=== PATIENT | female | born 1930 | race Caucasian/White ===

== ENCOUNTER → 2018-04-03 | Outpatient (CLI) | payer OTHER ==
[2018-03-22 11:11] VITALS: BP 98/64
[~2018-04-03] MED LIST: AMLO10TA6 PO; APIX2.5T PO; ASPI-612 PO; ATOR40TA59 PO; BETAMETHASONE; CITA10TA4 PO; DIGO125T PO; FURO40TA4 PO; GABA-585 PO; GLIM1TAB2 PO; HYDR-2145 PO; LEVO137T3 PO; LISI-130 PO; METO50TA4 PO; PANT20TA2 PO
[2018-04-03 14:22] LABS: CREATININE 2.6 mg/dL (0.6-1.0); GFR 17.5; POTASSIUM 3.5 mmol/L (3.5-5.1)
== END | disposition home or self-care (01) ==
LOC: SPEC 13:35
PROVIDERS: ATTEND Internal Medicine Cardiovascular Disease
DX: I11.0 Hypertensive heart disease with heart failure (principal); I50.22 Chronic systolic (congestive) heart failure
CPT/HCPCS: 36415; 80048

== ENCOUNTER 2018-04-04 10:20 | Emergency (ER) | payer OTHER ==
[~2018-04-04] VITALS: Ht 160 cm; Wt 52.6 kg
[2018-04-04] MEDS ORDERED: IV NORMAL SALINE 500ML BAG 500 ML IV ONE (10:45)
--- NOTE | 2018-04-04 10:46 | PHYS DOC ---
Past Medical History Past Medical History: A-Fib, Cancer, Diabetes-Type II, Hypertension, Other Additional Past Medical Histor: BREAST CA Past Surgical History: Angioplasty, Appendectomy, Cholecystectomy, Other Additional Past Surgical Histo: L ENDARECTOMY,L MASTECTOMY Alcohol Use: None Drug Use: None Adult General Chief Complaint Chief Complaint: ABNORMAL LABS HPI HPI Patient is a 87 year old female was asked to come back to the emergency room due to an elevated creatinine. It is up to 2.6 with a baseline around 1.1 yesterday. She had a cardiac catheter beginning of this month that did show diffuse coronary artery disease in addition she had a permanent pacemaker placed for sick sinus syndrome. She has been on her usual medications C whole list for review no new changes except that the amlodipine was cut in half recently. Patient has no fever she does have some generalized weakness when walking very long distances but really no chest pain and no shortness of breath she actually is overall feeling better than she was when she was in the hospital. No dysuria although she has had decreased urine output she tells me no abdominal pain no vomiting. Review of Systems Review of Systems Constitutional: Denies fever or chills [] Eyes: Denies change in visual acuity, redness, or eye pain [] HENT: Denies nasal congestion or sore throat [] Musculoskeletal: Denies back pain or joint pain [] Integument: Denies rash or skin lesions [] Neurologic: Denies headache, focal weakness or sensory changes [] Endocrine: Denies polyuria or polydipsia [] All other systems were reviewed and found to be within normal limits, except as documented in this note. Current Medications Current Medications Current Medications Medications (Trade) Dose Ordered Sig/Catie Start Time Stop Time Status Last Admin Dose Admin Sodium Chloride 500 ml @ 500 mls/hr 1X ONCE 04/04/18 10:45 04/04/18 11:44 DC 04/04/18 11:08 500 MLS/HR Allergies Allergies Allergies Coded Allergies Type Severity Reaction Last Updated Verified Penicillins Allergy Mild RASH 03/16/18 Yes Physical Exam Physical Exam Constitutional: Well developed, well nourished, no acute distress, non-toxic appearance. [] HENT: Normocephalic, atraumatic, bilateral external ears normal, oropharynx moist, no oral exudates, nose normal. [] Eyes: PERRLA, EOMI, conjunctiva normal, no discharge. [] Neck: Normal range of motion, no tenderness, supple, no stridor. [] Cardiovascular:Heart rate regular rhythm, no murmur [] Lungs & Thorax: Bilateral breath sounds clear to auscultation []pacemaker appears to be in good position on physical examination no signs of infection there. Abdomen: Bowel sounds normal, soft, no tenderness, no masses, no pulsatile masses. [] Skin: Warm, dry, no erythema, no rash. [] Back: No tenderness, no CVA tenderness. [] Extremities: No tenderness, no cyanosis, no clubbing, ROM intact, no edema. [] Neurologic: Alert and oriented X 3, normal motor function, normal sensory function, no focal deficits noted. [] Psychologic: Affect normal, judgement normal, mood normal. [] Current Patient Data Vital Signs Vital Signs Date Time Temp Pulse Resp B/P (MAP) Pulse Ox O2 Delivery O2 Flow Rate FiO2 04/04/18 10:22 97.9 69 18 144/70 (94) 98 Room Air 97.9 Lab Values Laboratory Tests Test 04/04/18 10:58 04/04/18 11:50 04/04/18 12:00 White Blood Count 7.2 x10^3/uL (4.0-11.0) Red Blood Count 4.10 x10^6/uL (3.50-5.40) Hemoglobin 12.5 g/dL (12.0-15.5) Hematocrit 37.3 % (36.0-47.0) Mean Corpuscular Volume 91 fL (79-100) Mean Corpuscular Hemoglobin 30 pg (25-35) Mean Corpuscular Hemoglobin Concent 33 g/dL (31-37) Red Cell Distribution Width 13.1 % (11.5-14.5) Platelet Count 187 x10^3/uL (140-400) Neutrophils (%) (Auto) 68 % (31-73) Lymphocytes (%) (Auto) 19 % (24-48) L Monocytes (%) (Auto) 9 % (0-9) Eosinophils (%) (Auto) 3 % (0-3) Basophils (%) (Auto) 1 % (0-3) Neutrophils # (Auto) 4.9 x10^3uL (1.8-7.7) Lymphocytes # (Auto) 1.4 x10^3/uL (1.0-4.8) Monocytes # (Auto) 0.6 x10^3/uL (0.0-1.1) Eosinophils # (Auto) 0.2 x10^3/uL (0.0-0.7) Basophils # (Auto) 0.0 x10^3/uL (0.0-0.2) Urine Collection Type Unknown Urine Color Yellow Urine Clarity Clear Urine pH 6.0 Urine Specific [place] 1.010 Urine Protein Negative mg/dL (NEG-TRACE) Urine Glucose (UA) Negative mg/dL (NEG) Urine Ketones (Stick) Negative mg/dL (NEG) Urine Blood Negative (NEG) Urine Nitrite Negative (NEG) Urine Bilirubin Negative (NEG) Urine Urobilinogen Dipstick 0.2 mg/dL (0.2 mg/dL) Urine Leukocyte Esterase Negative (NEG) Urine RBC 0 /HPF (0-2) Urine WBC 1-4 /HPF (0-4) Urine Squamous Epithelial Cells Mod /LPF Urine Bacteria Few /HPF (0-FEW) Urine Hyaline Casts Occasional /HPF Sodium Level 140 mmol/L (136-145) Potassium Level 3.5 mmol/L (3.5-5.1) Chloride Level 98 mmol/L (98-107) Carbon Dioxide Level 32 mmol/L (21-32) Anion Gap 10 (6-14) Blood Urea Nitrogen 55 mg/dL (7-20) H Creatinine 1.9 mg/dL (0.6-1.0) H Estimated GFR (Cockcroft-Gault) 25.1 BUN/Creatinine Ratio 29 (6-20) H Glucose Level 176 mg/dL (70-99) H Calcium Level 8.5 mg/dL (8.5-10.1) Total Bilirubin 0.8 mg/dL (0.2-1.0) Aspartate Amino Transferase (AST) 16 U/L (15-37) Alanine Aminotransferase (ALT) 25 U/L (14-59) Alkaline Phosphatase 82 U/L (46-116) Troponin I Quantitative 0.022 ng/mL (0.000-0.055) Total Protein 7.2 g/dL (6.4-8.2) Albumin 3.6 g/dL (3.4-5.0) Albumin/Globulin Ratio 1.0 (1.0-1.7) Laboratory Tests 04/04/18 10:58 Laboratory Tests 04/04/18 12:00 EKG EKG Paced rhythm rate of 74 no obvious ischemia was identifeid. [] Radiology/Procedures Radiology/Procedures [] Impressions: Cardiomediastinal silhouette: Stable Lungs: Previously seen left lung base has cleared. No focal infiltrate identified. Dense nodules, stable, compatible with granulomas. Pleura: No evidence of pleural effusion. Pneumothorax: None visualized Support Devices: Pacemaker redemonstrated. Surgical clips in the left axilla. Impression: No acute radiographic findings. Electronically signed by: Ean Roblero MD (04/04/2018 10:56 AM) [facility] DICTATED and SIGNED BY: EAN ROBLERO MD DATE: 04/04/18 105 Course & Med Decision Making Course & Med Decision Making Pertinent Labs and Imaging studies reviewed. (See chart for details) []Acute kidney injury. 87 show female with multiple medical problems recent pacemaker placement congestive heart failure etc. who came in for a creatinine of 2.6 we did give 500 mL of normal saline and the repeat creatinine today was 1.9 ( because the first sample was hemolyzed this one 9 is actually after a fluid bolus.) She is actually feeling pretty good overall her vitals are reassuring she looks good think it is okay for her to go home at this time I have referred her an outpatient basis to nephrology for routine follow-up. This is a combination of diuresis in the hospital, etc. Dragon Disclaimer Dragon Disclaimer This electronic medical record was generated, in whole or in part, using a voice recognition dictation system. Departure Departure Impression: Primary Impression: Renal insufficiency Disposition: HOME, SELF-CARE Condition: STABLE Referrals: UNKNOWN PCP NAME (PCP) MICHAEL SCHAEFFER MD Apr 04, 2018 10:46
--- NOTE | 2018-04-04 11:00 | RAD ---
PORTABLE CHEST 1V History: RENAL FAILURE, HX A-FIB, HTN, PACEMAKER PLACED 2 WEEKS AGO. Comparison: 03/20/2018 Cardiomediastinal silhouette: Stable Lungs: Previously seen left lung base has cleared. No focal infiltrate identified. Dense nodules, stable, compatible with granulomas. Pleura: No evidence of pleural effusion. Pneumothorax: None visualized Support Devices: Pacemaker redemonstrated. Surgical clips in the left axilla. Impression: No acute radiographic findings. Electronically signed by: Ean Roblero MD (04/04/2018 10:56 AM) [facility]
[2018-04-04 11:22] LABS: BASO % 1 % (0-3); EOS # 0.2 x10^3/uL (0.0-0.7); EOS % 3 % (0-3); HEMATOCRIT 37.3 % (36.0-47.0); HEMOGLOBIN 12.5 g/dL (12.0-15.5); LYMPH # 1.4 x10^3/uL (1.0-4.8); LYMPH % 19 % (24-48); MEAN CORPUSCULAR HEMOGLOBIN 30 pg (25-35); MEAN CORPUSCULAR HGB CONC 33 g/dL (31-37); MEAN CORPUSCULAR VOLUME 91 fL (79-100); MONO # 0.6 x10^3/uL (0.0-1.1); MONO % 9 % (0-9); NEUT # 4.9 x10^3uL (1.8-7.7); NEUT % 68 % (31-73); PLATELET COUNT 187 x10^3/uL (140-400); RED CELL DISTRIBUTION WIDTH 13.1 % (11.5-14.5); WHITE BLOOD COUNT 7.2 x10^3/uL (4.0-11.0)
[2018-04-04 12:18] LABS: BILIRUBIN,URINE NEGATIVE (NEG); CLARITY,URINE CLEAR; COLOR,URINE YELLOW; NITRITE,URINE NEGATIVE (NEG); PROTEIN,URINE NEGATIVE (NEG-TRACE); UROBILINOGEN,URINE 0.2 mg/dL (0.2 mg/dL)
[2018-04-04 12:28] LABS: HYALINE CASTS, URINE OCCASIONAL /HPF; SQUAMOUS EPITHELIAL CELL,UR MOD /LPF
[2018-04-04 12:29] LABS: CALCIUM 8.5 mg/dL (8.5-10.1); CREATININE 1.9 mg/dL (0.6-1.0); GFR 25.1; POTASSIUM 3.5 mmol/L (3.5-5.1)
[2018-04-04 12:29] LABS: BACTERIA,URINE FEW /HPF (0-FEW); RBC,URINE 0 /HPF (0-2)
[2018-04-04 12:34] LABS: ALBUMIN 3.6 g/dL (3.4-5.0); TOTAL BILIRUBIN 0.8 mg/dL (0.2-1.0); TOTAL PROTEIN 7.2 g/dL (6.4-8.2)
[2018-04-04 13:39] VITALS: BP 129/61
--- NOTE | 2018-04-04 13:51 | EKG ---
[facility] [address] [place] [address] Test Date: 2018-04-04 Test Time: 10:56:54 Pat Name: PONCHO BOUCHER Department: Room: Gender: F Diabetes Physician: : [id number] Requested By: MICHAEL SCHAEFFER Order Number: [id number] Reading MD: Measurements Intervals [place] Rate: 74 P: TX: QRS: -71 QRSD: 182 T: 106 QT: 406 QTc: 451 Interpretive Statements ATRIAL FLUTTER VENTRICULAR PREMATURE COMPLEX(ES) ABNORMAL LEFT AXIS DEVIATION NON SPECIFIC INTRAVENTRICULAR BLOCK QRS(T) CONTOUR ABNORMALITY CONSISTENT WITH ANTEROSEPTAL INFARCT AGE UNDETERMINED CONSISTENT WITH INFERIOR INFARCT POSSIBLY RECENT ABNORMAL ECG RI6.01 No previous ECG available for comparison
== END 2018-04-04 14:00 | disposition home or self-care (01) ==
LOC: ER 10:20
DX: N28.9 Disorder of kidney and ureter, unspecified (principal); I10 Essential (primary) hypertension; E11.9 Type 2 diabetes mellitus without complications; I48.91 Unspecified atrial fibrillation; Z90.89 Acquired absence of other organs; Z90.49 Acquired absence of other specified parts of digestive tract; I49.5 Sick sinus syndrome; Z95.0 Presence of cardiac pacemaker; Z95.5 Presence of coronary angioplasty implant and graft; I25.10 Atherosclerotic heart disease of native coronary artery without angina pectoris; Z88.0 Allergy status to penicillin
CPT/HCPCS: 36415; 71045; 80053; 81001; 84484; 85025; 93005; 99284; J7040

== ENCOUNTER → 2018-09-07 | Outpatient (CLI) | payer OTHER ==
[2018-05-09 11:30] VITALS: BP 101/52
[~2018-09-07] MED LIST changes: -AMLO10TA6 PO; +AMLO10TA8 PO; +AMLO5TAB10 PO; +LEVO100T PO
--- NOTE | 2018-09-11 10:56 | CARD ---
MR#: [id number] Date of Study: 09/07/2018 Ordering Physician: JOE FLOREZ, Referring Physician: JOE FLOREZ, Tech: Ann Quintero APPROVED REPORT EXAM: Two-dimensional and M-mode echocardiogram with Doppler and color Doppler. Other Information Quality : GoodHR: 69bpm Rhythm : Pacemaker INDICATION Cardiomyopathy Congestive Heart Failure Surgery/Intervention Pacemaker: Date: 2017 2D DIMENSIONS RVDd3.3 (2.9-3.5cm)Left Atrium(2D)3.6 (1.6-4.0cm) IVSd1.3 (0.7-1.1cm)Aortic Root(2D)2.9 (2.0-3.7cm) LVDd4.9 (3.9-5.9cm)LVOT Diameter2.0 (1.8-2.4cm) PWd1.0 (0.7-1.1cm)LVDs3.3 (2.5-4.0cm) FS (%) 31.2 %SV64.9 ml LVEF(%)58.9 (>50%) Aortic Valve AoV Peak Kody.92.9cm/sAoV VTI14.5cm AO Peak GR.3.5mmHgLVOT Peak Kody.66.2cm/s LVOT VTI 10.54cmAO Mean GR.2mmHg ASH (VMAX)1.03cf5ZGR (VTI)2.25cm2 AI P 1/2 [id number] Mitral Valve MV E Mean Gr.1mmHg Pulmonary Valve PV Peak Uhjcpytd40.2cm/sPV Peak Grad.3mmHg Tricuspid Valve TR P. Ntriinic213rl/sRAP [id number] TR Peak Gr.84bpHhOWWI58xvOt Pulmonary Vein S1 Srsosidf25.2cm/sD2 Gmnmogdy55.8cm/s PVa [id number] LEFT VENTRICLE The left ventricle is normal size. There is mild to moderate concentric left ventricular hypertrophy. The left ventricular systolic function is moderate to severely diminished. The ejection fraction is estimated at 30%. Diastology indeterminate RIGHT VENTRICLE The right ventricle is borderline dilated. There is normal right ventricular wall thickness. Systolic function is borderline reduced. Pacer lead noted in RA/RV. ATRIA The left atrium size is normal. The right atrium is mildly dilated. The interatrial septum is intact with no evidence for an atrial septal defect or patent foramen ovale as noted on 2-D or Doppler imagi ng. AORTIC VALVE The aortic valve is thickened but opens well. Doppler and Color Flow revealed trace aortic regurgitat ion. There is no significant aortic valvular stenosis. MITRAL VALVE The mitral valve is moderately thickened. There is no evidence of mitral valve prolapse. There is no mitral valve stenosis. Doppler and Color-flow revealed mild mitral regurgitation. TRICUSPID VALVE The tricuspid valve is normal in structure and function. Doppler and Color Flow revealed mild to mode rate tricuspid regurgitation with an estimated PAP of 34 mmHg. There is no tricuspid valve stenosis. PULMONIC VALVE The pulmonary valve is normal in structure and function. Doppler and Color Flow revealed mild pulmoni c valvular regurgitation. GREAT VESSELS The aortic root is normal in size. The IVC is normal in size and collapses >50% with inspiration. PERICARDIAL EFFUSION There is no evidence of significant pericardial effusion. Critical Notification Critical Value: No <Conclusion> The left ventricular systolic function is moderate to severely diminished. The ejection fraction is estimated at 30%. Pacer lead noted in RA/RV. Mild mitral regurgitation. Mild to moderate tricuspid regurgitation with an estimated PAP of 34 mmHg. There is no evidence of significant pericardial effusion. Signed by : Steven Beaulieu, Electronically Approved : 09/07/2018 15:14:09
== END | disposition home or self-care (01) ==
LOC: ECHO 13:13
PROVIDERS: ATTEND Internal Medicine Cardiovascular Disease
DX: I08.8 Other rheumatic multiple valve diseases (principal); I11.0 Hypertensive heart disease with heart failure; I50.9 Heart failure, unspecified; I42.8 Other cardiomyopathies
CPT/HCPCS: 93306

== ENCOUNTER → 2019-10-09 | Outpatient (CLI) | payer MEDICARE ==
[2018-11-02 11:00] VITALS: BP 153/64
[~2019-10-09] MED LIST changes: -DIGO125T PO; +DIGO125T3 PO; -GLIM1TAB2 PO; +GLIM1TAB7 PO; +INSU100I32 SQ; +LEVO-101 PO; -LEVO100T PO; +LISI-334 PO
--- NOTE | 2019-10-09 12:22 | CARD ---
MR#: [id number] Date of Study: 10/09/2019 Ordering Physician: JOE FLOREZ, Referring Physician: JOE FLOREZ, Tech: Ann Quintero APPROVED REPORT EXAM: Two-dimensional and M-mode echocardiogram with Doppler and color Doppler. Other Information Quality : AverageHR: 69bpm INDICATION Cardiac Disease: CAD Surgery/Intervention Pacemaker: Date: 2017 RISK FACTORS Hypertension Hyperlipidemia Diabetes 2D DIMENSIONS Left Atrium(2D)3.6 (1.6-4.0cm)IVSd1.5 (0.7-1.1cm) Aortic Root(2D)2.9 (2.0-3.7cm)LVDd4.7 (3.9-5.9cm) LVOT Diameter1.9 (1.8-2.4cm)PWd1.1 (0.7-1.1cm) LVDs2.9 (2.5-4.0cm)FS (%) 38.7 % SV71.9 mlLVEF(%)69.1 (>50%) Aortic Valve AoV Peak Kody.97.3cm/sAoV VTI15.5cm AO Peak GR.3.8mmHgLVOT Peak Kody.76.3cm/s LVOT VTI 15.13cmAO Mean GR.2mmHg ASH (VMAX)1.75nb5NOY (VTI)2.79cm2 Mitral Valve MV E Hdgvlczk08.2cm/sMV DECEL ZNAK379pj MV A Gshdxtfz06.5cm/sMV E Mean Gr.1mmHg MV ILX84qlV/A Ratio3.3 MVA (PHT)2.77cm2 TDI E/Lateral E'7.4E/Medial E'11.9 Pulmonary Valve PV Peak Fqtlrmlu04.2cm/sPV Peak Grad.2mmHg Tricuspid Valve TR P. Xjeunvpk649go/sRAP FNIWKKUT4ouOj TR Peak Gr.55guXeILRS87euTh LEFT VENTRICLE The left ventricle is normal size. There is mild concentric left ventricular hypertrophy. The left ve ntricular systolic function is low normal. The Ejection Fraction is 50%. Septal wall motion consisten t with pacemaker activation. RIGHT VENTRICLE The right ventricle is borderline dilated. There is normal right ventricular wall thickness. The righ t ventricular systolic function is normal. There is a pacemaker lead in the right ventricle. ATRIA The left atrium size is normal. The right atrium is mildly dilated. The interatrial septum is intact with no evidence for an atrial septal defect or patent foramen ovale as noted on 2-D or Doppler imagi ng. AORTIC VALVE The aortic valve is thickened but opens well. Doppler and Color Flow revealed trace aortic regurgitat ion. There is no significant aortic valvular stenosis. MITRAL VALVE The mitral valve is normal in structure and function. There is no evidence of mitral valve prolapse. There is no mitral valve stenosis. Doppler and Color-flow revealed mild mitral regurgitation. TRICUSPID VALVE The tricuspid valve is normal in structure and function. Doppler and Color Flow revealed mild tricusp id regurgitation with an estimated PAP of 33 mmHg. There is no tricuspid valve stenosis. PULMONIC VALVE The pulmonary valve is normal in structure and function. Doppler and Color Flow revealed trace pulmon ic valvular regurgitation. GREAT VESSELS The aortic root is normal in size. The IVC is normal in size and collapses >50% with inspiration. PERICARDIAL EFFUSION There is no evidence of significant pericardial effusion. Critical Notification Critical Value: No <Conclusion> The left ventricular systolic function is low normal. The Ejection Fraction is 50%. Septal wall motion consistent with pacemaker activation. There is a pacemaker lead in the right atrium and ventricle. Mild mitral regurgitation. Mild tricuspid regurgitation with an estimated PAP of 33 mmHg. There is no evidence of significant pericardial effusion. Signed by : Steven Beaulieu, Electronically Approved : 10/09/2019 12:22:07
== END | disposition home or self-care (01) ==
LOC: ECHO 10:44
PROVIDERS: ATTEND Internal Medicine Cardiovascular Disease
DX: I08.1 Rheumatic disorders of both mitral and tricuspid valves (principal); I25.10 Atherosclerotic heart disease of native coronary artery without angina pectoris; I10 Essential (primary) hypertension; E11.8 Type 2 diabetes mellitus with unspecified complications; E78.5 Hyperlipidemia, unspecified; Z95.0 Presence of cardiac pacemaker
CPT/HCPCS: 93306